=== PATIENT | male | born 1980 | race Caucasian/White ===

== ENCOUNTER 2019-08-04 15:19 | Emergency (ER) | payer OTHER ==
[2019-08-04] MEDS ORDERED: hydrALAZINE HCL 20 MG/ML 1 ML VIAL IVP STA (16:27)
[2019-08-04 16:31] LABS: Basophils % (A) 0 %; Eosinophils # (A) 0.1 k/uL (0-0.7); Eosinophils % (A) 1 %; HCT 46.3 % (39.0-53.0); HGB 15.8 gm/dL (13.0-17.5); Lymphocytes # (A) 1.7 k/uL (1.0-4.8); Lymphocytes % (A) 15 %; MCH 29.3 pg (25.0-35.0); MCHC 34.2 g/dL (31.0-37.0); MCV 85.7 fL (80.0-100.0); Mean Platelet Volume 7.5; Monocytes # (A) 0.5 k/uL (0-1.0); Monocytes % (A) 4 %; Neutrophils # (A) 9.1 k/uL (1.3-7.7); Neutrophils % (A) 79 %; Platelet Count 339 k/uL (150-450); RBC 5.41 m/uL (4.30-5.90); RDW 12.4 % (11.5-15.5); WBC 11.5 k/uL (3.8-10.6)
[2019-08-04 16:41] LABS: INR 0.9 (<1.2); Prothrombin Time 9.7 sec (9.0-12.0)
[2019-08-04 16:42] LABS: ALT 59 U/L (4-49); AST 40 U/L (17-59); African American GFR (CKD) >90 (>60 ml/min/1.73 sqM); Albumin 4.2 g/dL (3.5-5.0); Alkaline Phosphatase 131 U/L (38-126); Anion Gap 10 mmol/L; Blood Urea Nitrogen 13 mg/dL (9-20); Calcium 9.7 mg/dL (8.4-10.2); Carbon Dioxide 24 mmol/L (22-30); Chloride 102 mmol/L (98-107); Glucose 195 mg/dL (74-99); Magnesium 1.9 mg/dL (1.6-2.3); Non-African American GFR(CKD) >90 (>60 ml/min/1.73 sqM); Potassium 4.3 mmol/L (3.5-5.1); Sodium 136 mmol/L (137-145); Total Bilirubin 0.2 mg/dL (0.2-1.3); Total Protein 7.8 g/dL (6.3-8.2)
[2019-08-04 16:51] VITALS: RESP 17
--- NOTE | 2019-08-04 16:57 | ED ---
General Adult HPI - General Chief complaint: Chest Pain Stated complaint: Chest Pain Time Seen by Provider: 08/04/19 15:25 Source: patient, RN notes reviewed, old records reviewed Mode of arrival: ambulatory Limitations: no limitations - History of Present Illness Initial comments: This is a 39-year-old male who presents emergency department stating that on Friday and Friday he had a small area on the right side of his chest that is causing some pain he said it was sharp it was barely noticeable. Patient states on Friday he had no pain whatsoever today that small pain came back it wasn't reproducible didn't hurt cough didn't hurt to take a deep breath. Patient states he had a little episode of shaking today so he was a bit nervous about that he went to the urgent care when the urgent care soundly stole them for any Chest pain she comes emergency Department. Patient denies any difficulty breathing shortest breath per patient denies any diaphoretic episodes. Patient denies any nausea. Patient denies any leg swelling or calf tenderness. Patient denies any abdominal pain patient denies nausea vomiting diarrhea. Patient states the pain is barely noticeable and that is not what brought him to the urgent care was more the shakiness that he had he wasn't sure why that was occurring. - Related Data Home Medications Medication Instructions Recorded Confirmed Aspirin 324 mg PO ONCE PRN 08/04/19 08/04/19 Ibuprofen [Advil] 400 mg PO ONCE PRN 08/04/19 08/04/19 Previous Rx's Medication Instructions Recorded amLODIPine [Norvasc] 5 mg PO DAILY #90 tab 08/04/19 Allergies Allergy/AdvReac Type Severity Reaction Status Date / Time codeine Allergy Mild Unknown Verified 08/04/19 17:01 Childhood Review of Systems ROS Statement: Those systems with pertinent positive or pertinent negative responses have been documented in the HPI. ROS Other: All systems not noted in ROS Statement are negative. Past Medical History Past Medical History: Hypertension, Thyroid Disorder History of Any Multi-Drug Resistant Organisms: None Reported Past Surgical History: Orthopedic Surgery Past Psychological History: No Psychological Hx Reported Smoking Status: Current every day smoker Past Alcohol Use History: Occasional Past Drug Use History: None Reported General Exam - General Exam Comments Initial Comments: GENERAL: Patient is well-developed and well-nourished. Patient is nontoxic and well- hydrated and is in no acute distress. ENT: Neck is soft and supple. No significant lymphadenopathy is noted. Oropharynx is clear. Moist mucous membranes. Neck has full range of motion without el iciting any pain. EYES: The sclera were anicteric and conjunctiva were pink and moist. Extraocular movements were intact and pupils were equal round and reactive to light. Eyelids were unremarkable. PULMONARY: Unlabored respirations. Good breath sounds bilaterally. No audible rales rhonchi or wheezing was noted. CARDIOVASCULAR: There is a regular rate and rhythm without any murmurs gallops or rubs. ABDOMEN: Soft and nontender with normal bowel sounds. SKIN: Skin is clear with no lesions or rashes and otherwise unremarkable. NEUROLOGIC: Patient is alert and oriented x3. Cranial nerves II through XII are grossly intact. Motor and sensory are also intact. Normal speech, volume and content. Symmetrical smile. MUSCULOSKELETAL: Normal extremities with adequate strength and full range of motion. LYMPHATICS: No significant lymphadenopathy is noted PSYCHIATRIC: Normal psychiatric evaluation. Limitations: no limitations Course Vital Signs 08/04/19 08/04/19 15:23 16:30 Temperature 99.2 F Pulse Rate 108 H 99 Respiratory 18 17 Rate Blood Pressure 189/132 161/92 O2 Sat by Pulse 97 97 Oximetry Medical Decision Making - Medical Decision Making EKG shows normal sinus rhythm at 98 bpm WV interval 260 QRS is 94 QT interval 3 :30 QTC is 421 per patient's EKG shows no ST segment elevation or depression. Patient is given hydralazine for the high blood pressure. Patient's chest x-ray shows no acute abnormality. Patient states she'll get a primary medical care doctor and follow-up her side blood pressure. Patient did not want to stay in fact he stated he didn't even want to come to the emergency department. Patient stated that he will not be able to get into see a physician in 30 days so he asked if I could have a prescription for 90 days. I will be giving him a prescription for amlodipine for 90 days. Patient states if he has anymore chest pain difficulty breathing or he notices blood pressures elevated he will come back immediately. Patient states he does have a blood pressure cuff. - Lab Data Result diagrams: 08/04/19 16:22 08/04/19 16:22 Lab Results 08/04/19 08/04/19 08/04/19 Range/Units 16:22 16:22 16:22 WBC 11.5 H (3.8-10.6) k/uL RBC 5.41 (4.30-5.90) m/uL Hgb 15.8 (13.0-17.5) gm/dL Hct 46.3 (39.0-53.0) % MCV 85.7 (80.0-100.0) fL MCH 29.3 (25.0-35.0) pg MCHC 34.2 (31.0-37.0) g/dL RDW 12.4 (11.5-15.5) % Plt Count 339 (150-450) k/uL Neutrophils % 79 % Lymphocytes % 15 % Monocytes % 4 % Eosinophils % 1 % Basophils % 0 % Neutrophils # 9.1 H (1.3-7.7) k/uL Lymphocytes # 1.7 (1.0-4.8) k/uL Monocytes # 0.5 (0-1.0) k/uL Eosinophils # 0.1 (0-0.7) k/uL Basophils # 0.0 (0-0.2) k/uL PT 9.7 (9.0-12.0) sec INR 0.9 (<1.2) APTT 27.0 (22.0-30.0) sec Sodium 136 L (137-145) mmol/L Potassium 4.3 (3.5-5.1) mmol/L Chloride 102 (98-107) mmol/L Carbon Dioxide 24 (22-30) mmol/L Anion Gap 10 mmol/L BUN 13 (9-20) mg/dL Creatinine 0.75 (0.66-1.25) mg/dL Est GFR (CKD-EPI)AfAm >90 (>60 ml/min/1.73 sqM) Est GFR (CKD-EPI)NonAf >90 (>60 ml/min/1.73 sqM) Glucose 195 H (74-99) mg/dL Calcium 9.7 (8.4-10.2) mg/dL Magnesium 1.9 (1.6-2.3) mg/dL Total Bilirubin 0.2 (0.2-1.3) mg/dL AST 40 (17-59) U/L ALT 59 H (4-49) U/L Alkaline Phosphatase 131 H (38-126) U/L Troponin I (0.000-0.034) ng/mL Total Protein 7.8 (6.3-8.2) g/dL Albumin 4.2 (3.5-5.0) g/dL 08/04/19 Range/Units 16:22 WBC (3.8-10.6) k/uL RBC (4.30-5.90) m/uL Hgb (13.0-17.5) gm/dL Hct (39.0-53.0) % MCV (80.0-100.0) fL MCH (25.0-35.0) pg MCHC (31.0-37.0) g/dL RDW (11.5-15.5) % Plt Count (150-450) k/uL Neutrophils % % Lymphocytes % % Monocytes % % Eosinophils % % Basophils % % Neutrophils # (1.3-7.7) k/uL Lymphocytes # (1.0-4.8) k/uL Monocytes # (0-1.0) k/uL Eosinophils # (0-0.7) k/uL Basophils # (0-0.2) k/uL PT (9.0-12.0) sec INR (<1.2) APTT (22.0-30.0) sec Sodium (137-145) mmol/L Potassium (3.5-5.1) mmol/L Chloride (98-107) mmol/L Carbon Dioxide (22-30) mmol/L Anion Gap mmol/L BUN (9-20) mg/dL Creatinine (0.66-1.25) mg/dL Est GFR (CKD-EPI)AfAm (>60 ml/min/1.73 sqM) Est GFR (CKD-EPI)NonAf (>60 ml/min/1.73 sqM) Glucose (74-99) mg/dL Calcium (8.4-10.2) mg/dL Magnesium (1.6-2.3) mg/dL Total Bilirubin (0.2-1.3) mg/dL AST (17-59) U/L ALT (4-49) U/L Alkaline Phosphatase (38-126) U/L Troponin I <0.012 (0.000-0.034) ng/mL Total Protein (6.3-8.2) g/dL Albumin (3.5-5.0) g/dL Disposition Clinical Impression: Atypical chest pain, Hypertensive urgency Disposition: HOME SELF-CARE Condition: Good Instructions (If sedation given, give patient instructions): Chest Pain (ED) Prescriptions: amLODIPine [Norvasc] 5 mg PO DAILY #90 tab Is patient prescribed a controlled substance at d/c from ED?: No Referrals: None,Stated [Primary Care Provider] - 1-2 days Time of Disposition: 17:49
[2019-08-04] MEDS ORDERED: SODIUM CHLORIDE 0.9% 1,000 ML IV STA (17:11)
--- NOTE | 2019-08-04 17:50 | XR ---
EXAMINATION TYPE: XR chest 2V DATE OF EXAM: 08/04/2019 COMPARISON: NONE HISTORY: Chest pain TECHNIQUE: 2 views FINDINGS: Heart and mediastinum are normal. Lungs are clear. Diaphragm is normal. Bony thorax appears normal. IMPRESSION: Normal chest.
[2019-08-04 18:10] VITALS: BP 136/93; PULSE 96; TEMP 98.3
== END 2019-08-04 18:09 | disposition home or self-care (01) ==
LOC: EC 15:19
DX: I16.0 Hypertensive urgency (principal); R07.89 Other chest pain; F17.200 Nicotine dependence, unspecified, uncomplicated; I10 Essential (primary) hypertension; Z79.82 Long term (current) use of aspirin; Z88.5 Allergy status to narcotic agent
CPT/HCPCS: 36415; 93005; 80053; 83735; 84484; 85025; 85610; 85730; 71046; 99285; 96374; J0360

== ENCOUNTER → 2023-12-25 | Outpatient (CLI) | payer OTHER ==
--- NOTE | 2023-12-25 15:26 | XR ---
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 FINDINGS: Lungs/Pleura: There is no evidence of pleural effusion, focal consolidation, or pneumothorax. Pulmonary vascularity: Unremarkable. Heart/mediastinum: Cardiomediastinal silhouette is unremarkable. Musculoskeletal: No acute osseous pathology. IMPRESSION: No acute cardiopulmonary disease/process. [facility], , 12/25/2023 3:24 PM
[2023-12-25 19:36] LABS: Appearance,Urine Clear (Clear); Bilirubin,Urine Negative (Negative); Blood,Urine Negative (Negative); Color,Urine Yellow (Yellow); Ketones,Urine Negative (Negative); Nitrite,Urine Negative (Negative); PH, Urine 5.5; Specific Gravity,Urine 1.014 (1.001-1.030); Urobilinogen,Urine 0.2 E.U./DL
[2023-12-25 19:43] LABS: Blood Urea Nitrogen 14.4 mg/dL (9.0-27.0); Calcium 9.5 mg/dL (8.7-10.3); Carbon Dioxide 25.8 mmol/L (21.6-31.8); Chloride 101 mmol/L (96-109); Glucose 152 mg/dL (70-110); Potassium 4.3 mmol/L (3.5-5.5); Sodium 138 mmol/L (135-145)
[2023-12-25 19:47] LABS: Basophils # (A) 0.06 X 10*3/uL (0.00-0.10); Basophils % (A) 0.6 %; Eosinophils # (A) 0.23 X 10*3/uL (0.04-0.35); Eosinophils % (A) 2.1 %; HCT 42.9 % (39.6-50.0); HGB 14.3 g/dL (13.0-17.0); Lymphocytes # (A) 2.24 X 10*3/uL (0.90-5.00); Lymphocytes % (A) 20.8 %; MCH 28.9 pg (27.0-32.0); MCHC 33.3 g/dL (32.0-37.0); MCV 86.7 FL (80.0-97.0); Mean Platelet Volume 10.7 FL (9.5-12.2); Monocytes # (A) 0.54 X 10*3/uL (0.20-1.00); NRBC Per 100 WBC 0 X 10*3/uL (0.00-0.01); Neutrophils # (A) 7.64 X 10*3/uL (1.80-7.70); Neutrophils % (A) 71.1 %; Platelet Count 440 X 10*3/uL (140-440); RBC 4.95 X 10*6/uL (4.40-5.60); RDW 12.6 % (11.5-14.5); WBC 10.75 X 10*3/uL (4.50-10.00)
== END | disposition home or self-care (01) ==
LOC: LABPAT 13:55
PROVIDERS: ATTEND Urology
DX: Z01.818 Encounter for other preprocedural examination (principal); D41.02 Neoplasm of uncertain behavior of left kidney; D48.9 Neoplasm of uncertain behavior, unspecified
CPT/HCPCS: 71046; 80048; 81003; 85025; 86850; 86900; 86901; 87086

== ENCOUNTER → 2023-12-29 | Outpatient (CLI) | payer OTHER | END | disposition home or self-care (01) | LOC: LABPAT 10:55 | PROVIDERS: ATTEND Urology | DX: Z53.9 Procedure and treatment not carried out, unspecified reason (principal) ==

== ENCOUNTER 2024-01-01 09:05 | Inpatient (IN) | payer OTHER ==
[2023-12-26 15:35] VITALS: BMI 37.6
[~2024-01-01 09:05] MED LIST: HYDROmorphone 0.5 MG/0.5 ML SYRINGE IVP PRN; LIDOCAINE 1% (10MG/ML) FOR IV START INTRADERMA PRN
[2024-01-01] MEDS: IV FLUID CONTINUATION 1,000 ML IV ONE ×3 (09:19→09:58)
--- NOTE | 2024-01-01 09:20 | P.HPIHPCON ---
History of Present Illness H&P Date: 01/01/24 Chief Complaint: Left renal mass This is a 43-year-old male with history of a 4.6 cm left-sided renal mass reviewed the images with him, discussed this is not amenable to partial nephrectomy. Discussed with him this is concerning for renal cell carcinoma, option of a renal mass biopsy was discussed. He declined agreed to proceed with a left robotic radical nephrectomy. Discussed the risk, bleeding, infection, injury to nearby organs which includes but not limited to spleen, bowel, pancreas. Discussed also potential this could be a benign pathology. Discussed potential need of hemodialysis in the short and long-term. Risk of cancer recurrence and the need for additional treatments was also discussed. He understood all the risk and agreed to proceed with a left robotic radical nephrectomy Consent for Procedure: I have explained the operation/procedure to the patient, including the risks, benefits, side effects, alternative therapies (including not receiving the proposed treatment or service), the likelihood of the patient achieving his/her goals, and potential recuperation problems for the procedure/sedation/analgesia, as well as any blood products, if indicated. I also explained to the patient the risks, benefits and side effects of the alternatives, as well as the risks related to not receiving the proposed procedure, care, treatment, or services. Past Medical History Past Medical History: Hypertension, Thyroid Disorder Additional Past Medical History / Comment(s): Hard of hearing. Vertigo. Graves Disease - "had thyroid obliterated 11/2020". "Moderate fatty liver". Migraine about once every 6 months. "Tonsils are oversized." History of Any Multi-Drug Resistant Organisms: None Reported Past Surgical History: Orthopedic Surgery Past Anesthesia/Blood Transfusion Reactions: No Reported Reaction, Motion Sickness Additional Past Anesthesia/Blood Transfusion Reaction / Comment(s): Has never had Anesthesia. "Tonsils are oversized." "Dad had trouble waking up, had to have Narcan, was told Nurse wasn't watching him". Past Psychological History: No Psychological Hx Reported Past Alcohol Use History: Occasional - Past Family History Father Family Medical History: Cancer Additional Family Medical History / Comment(s): Skin cancer. Medications and Allergies Home Medications Medication Instructions Recorded Confirmed Type Dulaglutide [Trulicity] 1.5 mg SQ FR 12/26/23 12/26/23 History Thyroid,Pork [Metal Trimmer Thyroid] 90 mg PO QAM 12/26/23 12/26/23 History amLODIPine 10 mg PO PC-SUPPER 12/26/23 12/26/23 History Allergies Allergy/AdvReac Type Severity Reaction Status Date / Time No Known Allergies Allergy Verified 12/26/23 15:13 Surgical - Exam - General no distress, no pain - Eyes normal ocular movement, no pale - ENT normal nares, normal mucosa - Respiratory normal expansion, normal respiratory effort - Abdomen Abdomen: soft, non tender - Psychiatric oriented to time, oriented to person, oriented to place Assessment and Plan Assessment: OR for left-sided robotic radical nephrectomy
[2024-01-01] MEDS ORDERED: ONDANSETRON 4 MG/2 ML VIAL IVP PRN (09:23)
[2024-01-01] MEDS ORDERED: HYDROmorphone 0.5 MG/0.5 ML SYRINGE IVP PRN (09:24)
[2024-01-01] MEDS ORDERED: HYDROcodone/APAP 5-325MG 1 EACH TAB PO PRN (09:25)
[2024-01-01] MEDS: DEXAMETHASONE SOD PHOSPHATE 4 MG/ML 1 ML VIAL IV ONE (09:35)
[2024-01-01] MEDS: ONDANSETRON 4 MG/2 ML VIAL IVP PRN (09:35)
[2024-01-01] MEDS: LACTATED RINGERS 1,000 ML IV SCH (09:36)
[2024-01-01 09:39] LABS: Glucose,Whole Blood 116 mg/dL (70-110)
[2024-01-01] MEDS: fentaNYL (PF) 50 MCG/ML 2 ML AMP IVP PRN (09:44)
[2024-01-01] MEDS: MIDAZOLAM 2 MG/2 ML VIAL IV ONE (09:44)
--- NOTE | 2024-01-01 09:53 | P.ANPRN ---
Procedure Note - Anesthesia - Nerve Block Performed Bilateral Erector Spinae Single Time Out Performed: Yes Date of Procedure: 01/01/24 Procedure Start Time: :43 Procedure Stop Time: :52 Location of Patient: PreOp Indication: Acute Post-Operative Pain, Requested by Surgeon Sedation Type: Sedate with meaningful contact maintained Preparation: Sterile Prep Position: Prone Needle Types: Pajunk Needle Gauge: 21 Ultrasound used to visualize needle placement: Yes Ultrasound used to observe medication spread: Yes Injectate: 0.5% Ropivacaine (see comment for volume) (20 ml + 10 ml NS + 4 mg Dexamethasone per side) Blood Aspirated: No Pain Paresthesia on Injection Noted: No Resistance on Injection: Normal Image Stored and Saved: Yes Events: Uneventful and Well Tolerated
[2024-01-01] MEDS ORDERED: SODIUM CHLORIDE 0.9% (PF) 10 ML VIAL ONE (10:13)
[2024-01-01] MEDS ORDERED: fentaNYL (PF) 50 MCG/ML 2 ML AMP ONE (10:13)
[2024-01-01] MEDS ORDERED: ROPIVACAINE 5 MG/ML 30 ML VIAL ONE (10:13)
[2024-01-01] MEDS: ceFAZolin 3 GM in SODIUM CHLORIDE 0.9% 100 ML IVPB PRN (10:13)
[2024-01-01] MEDS ORDERED: KETAMINE HCL IN 0.9 % NACL 50 MG/5 ML SYRINGE ONE (10:13)
[2024-01-01] MEDS ORDERED: PROPOFOL 10 MG/ML 20 ML VIAL IV ONE (10:13)
[2024-01-01] MEDS ORDERED: PHENYLEPHRINE-0.9% NACL SYG 1,000 MCG/10 ML SYRINGE ONE (10:13)
[2024-01-01] MEDS ORDERED: LIDOCAINE 1% INJ 10MG/ML (20 ML MDV) ONE (10:13)
[2024-01-01] MEDS ORDERED: MIDAZOLAM 2 MG/2 ML VIAL ONE (10:13)
[2024-01-01] MEDS ORDERED: NEOSTIGMINE 1 MG/ML 10 ML VIAL ONE (10:13)
[2024-01-01] MEDS ORDERED: GLYCOPYRROLATE 0.2 MG/ML 2 ML VIAL ONE (10:13)
[2024-01-01] MEDS ORDERED: HYDROmorphone (PF) 1 MG/ML ONE (10:13)
[2024-01-01] MEDS ORDERED: ROCURONIUM 10 MG/ML (5 ML VIAL) IV ONE (10:13)
[2024-01-01] MEDS ORDERED: SUCCINYLCHOLINE CHLORIDE 200 MG/10 ML VIAL IV ONE (10:13)
[2024-01-01] MEDS ORDERED: DEXAMETHASONE SOD PHOSPHATE 4 MG/ML 1 ML VIAL ONE (10:13)
[2024-01-01] MEDS: BUPIVACAINE (PF) 0.25% 30 ML VIAL SQ ONE (10:45)
--- NOTE | 2024-01-01 12:48 | P.OP ---
Date of Procedure: 01/01/24 Preoperative Diagnosis: Left renal mass Postoperative Diagnosis: Same Procedure(s) Performed: Robotic left-sided radical nephrectomy Implants: None Anesthesia: COLIN Surgeon: Arnie Engel Estimated Blood Loss (ml): 50 Pathology: other (Left kidney and mass) Condition: stable Disposition: PACU Indications for Procedure: This is a 43-year-old male with history of a 4.6 cm left-sided renal mass reviewed the images with him, discussed this is not amenable to partial nephrectomy. Discussed with him this is concerning for renal cell carcinoma, option of a renal mass biopsy was discussed. He declined agreed to proceed with a left robotic radical nephrectomy. Discussed the risk, bleeding, infection, injury to nearby organs which includes but not limited to spleen, bowel, pancreas. Discussed also potential this could be a benign pathology. Discussed potential need of hemodialysis in the short and long-term. Risk of cancer recurrence and the need for additional treatments was also discussed. He understood all the risk and agreed to proceed with a left robotic radical nephrectomy Description of Procedure: The patient was taken to the operating room . General anesthesia was induced. He was prepped and draped in sterile fashion, she was placed in modified flank position . All pressure points were padded. The abdominal insufflation was achieved with the Veress needle. A 8 mm camera port was placed. Robotic trocars and benefits assistant ports were placed under direct vision. The robot was docked into place. The colon was mobilized medially by incising along the white line of Toldt. Next the spleen and the pancrease were mobilized. Once the bowel, spleen and pancreas were mobilized. At this time the gonadal vessel was visualized. Once the gonadal vessel and ureter was visualized , next after the psoas plane was developed the ureter and gonadal vessel was retracted anteriorly off the psoas muscle. Dissection proceeded cranially towards the renal hilum. The upper pole attachments were dissected. Care was taken to safely mobilize the kidney free of all visceral structures.The renal vessels were dissected. At this point the renal vessels were exposed. Next the renal hilum was ligated using the vascular stapler. The adrenal gland was mobilized and spared. Lateral and remaining kidney attachments were released. The ureter was dissected further distally. The ureter was ligated using the vascular stapler. The kidney was placed in an Endo Catch bag. Hemostatic agent were applied to the surgical field. The robot was then de-docked and the specimen was then removed by extending the benefits assistant port. Fascia was closed with one layer using #1 PDS. Skin was closed with subcuticular sutures and dermabond. The patient was awoken from general anesthesia in stable condition. Please refer to the final pathology report for final diagnosis
[2024-01-01] MEDS: droPERidol 5 MG/2 ML VIAL IVP ONE (14:26)
[2024-01-01] MEDS: SCOPOLAMINE 1 MG/72 HR PATCH TRANSDERM ONE (14:27)
[2024-01-01] MEDS: KETOROLAC 15 MG/ML 1 ML VIAL IVP SCH (14:36)
[2024-01-01] MEDS: D5-0.45% NACL WITH KCL 20MEQ/L 1,000 ML IV SCH (15:47)
[2024-01-01] MEDS: BENZOCAINE/MENTHOL LOZENG 1 EACH LOZENGE MUCOUS MEM PRN (15:48)
[2024-01-01] MEDS: HEPARIN SODIUM,PORCINE 5,000 UNIT/ML 1 ML VIAL SQ SCH (17:47)
[2024-01-01] MEDS: amLODIPine 10 MG TAB PO SCH (17:52)
[2024-01-01] MEDS: SIMETHICONE 80 MG CHEWABLE PO PRN (22:00)
[2024-01-02] MEDS: THYROID, PORK 30 MG TAB PO SCH (04:59)
[2024-01-02 07:35] VITALS: BP 155/89; PULSE 82; RESP 17; TEMP 99
[2024-01-02] MEDS ORDERED: THYROID, PORK 30 MG TAB PO SCH (09:00)
== END 2024-01-02 13:02 | disposition home or self-care (01) | DRG 442 ==
LOC: 2ORMAIN 09:05 → EDSTATUS 12:00 → 4SSUR 13:37 → UNDODISIN 20:31
PROVIDERS: ADMIT Urology; ATTEND Urology
PROC: 8E0W0CZ Robotic Assisted Procedure of Trunk Region, Open Approach (ICD-10-PCS; 2024-01-01)
PROC: 0TT10ZZ Resection of Left Kidney, Open Approach (ICD-10-PCS; principal; 2024-01-01 12:00)
DX: C64.2 Malignant neoplasm of left kidney, except renal pelvis (principal); E05.00 Thyrotoxicosis with diffuse goiter without thyrotoxic crisis or storm; I10 Essential (primary) hypertension; F17.210 Nicotine dependence, cigarettes, uncomplicated; H91.90 Unspecified hearing loss, unspecified ear; Z79.85 Long-term (current) use of injectable non-insulin antidiabetic drugs; Z79.890 Hormone replacement therapy; Z79.899 Other long term (current) drug therapy; Z80.8 Family history of malignant neoplasm of other organs or systems
CPT/HCPCS: 64999; 88307

== ENCOUNTER → 2024-06-14 | Outpatient (CLI) | payer OTHER ==
--- NOTE | 2024-06-14 09:15 | XR ---
EXAMINATION TYPE: XR chest 2V DATE OF EXAM: 06/14/2024 9:11 AM COMPARISON: Chest radiographs from 12/25/2023, 08/04/2019 TECHNIQUE: XR chest 2V Frontal and lateral views of the chest. CLINICAL INDICATION:Male, 44 years old with history of C64.2 RENAL CA LEFT; FINDINGS: Lungs/Pleura: There is no evidence of pleural effusion, focal consolidation, or pneumothorax. Pulmonary vascularity: Unremarkable. Heart/mediastinum: Cardiomediastinal silhouette is unremarkable. Musculoskeletal: No acute osseous pathology. IMPRESSION: No acute cardiopulmonary disease/process. [facility], , 06/14/2024 9:13 AM
[2024-06-14 09:45] LABS: African American GFR (CKD) 71 (>60 ml/min/1.73 sqM); Blood Urea Nitrogen 16 mg/dL (9-20); Non-African American GFR(CKD) 61 (>60 ml/min/1.73 sqM)
--- NOTE | 2024-06-14 10:51 | CT ---
EXAMINATION TYPE: CT abdomen wo/w con DATE OF EXAM: 06/14/2024 10:36 AM COMPARISON: None. CLINICAL INDICATION: Male, 44 years old with history of C64.2 RENAL CANCER; HX OF RENAL CA, LEFT KIDN EY REMOVED 12/2023 TECHNIQUE: Axial CT abdomen wo/w con;Sagittal and coronal reformats were created on a separate works tation. Contrast used:100 ML mL of Isovue 300 without and with IV Contrast, (none if empty) Oral contrast used: with Oral Contrast (none if empty) CT DLP: 2028 mGycm, Automated exposure control for dose reduction was used. FINDINGS: LOWER CHEST: Unremarkable ABDOMEN LIVER: Unremarkable GALLBLADDER AND BILE DUCTS: Gallstone in gallbladder neck. PANCREAS: Unremarkable. SPLEEN: Unremarkable. ADRENAL GLANDS: Unremarkable. KIDNEYS AND URETERS: The left kidney is surgically absent no enlarging soft tissue mass. No evidence for right hydronephrosis or right obstructing calculus. STOMACH AND BOWEL: No evidence of bowel obstruction. Scattered colonic diverticula. PERITONEUM/RETROPERITONEUM: No evidence of pneumoperitoneum or free fluid. VASCULATURE: No evidence of aortic aneurysm. MUSCULOSKELETAL: No acute osseous abnormalities LYMPH NODES: No gross evidence for lymphadenopathy. SOFT TISSUE/ABDOMINAL WALL: Unremarkable IMPRESSION: 1. Left nephrectomy with no evidence for recurrent local disease. No enlarging lymph nodes identifie d. 2. Colonic diverticulosis. 3. Cholelithiasis. [facility], , 06/14/2024 10:49 AM
== END | disposition home or self-care (01) ==
LOC: RADCTMAIN 08:57
PROVIDERS: ATTEND Urology
DX: C64.2 Malignant neoplasm of left kidney, except renal pelvis (principal); K57.30 Diverticulosis of large intestine without perforation or abscess without bleeding; K80.20 Calculus of gallbladder without cholecystitis without obstruction; Z90.5 Acquired absence of kidney
CPT/HCPCS: 82565; 84520; 71046; 74170; Q9967